=== PATIENT | female | born 1980 | race Caucasian/White ===

== ENCOUNTER 2022-09-03 11:47 | Emergency (ER) | payer OTHER, SELFPAY ==
[2022-09-03] VITALS (22 sets, daily range): BP systolic 100–129; BP diastolic 51–75; PULSE 53–70; RESP 18; TEMP 35.8; O2SAT 95–98; BMI 35.8
--- NOTE | 2022-09-03 12:45 | ED.GENADULT ---
HPI - General Adult General Chief complaint: Flank Pain Stated complaint: Full body swelling, flank pain Time Seen by Provider: 09/03/22 11:55 Source: patient Mode of arrival: ambulatory Limitations: no limitations History of Present Illness HPI narrative: 41-year-old female coming in today complaining of generalized swelling going on since July. She states that she has had increased swelling over the last several months and that the swelling encompasses the entire body from head to toe. She states that everything feels tight. She states that all of her joints hurt. She states that she also has abdominal pain and left-sided flank pain. She complains of drainage coming from her umbilicus. She also has history of depression and states that she has ongoing suicidal thoughts. These thoughts are not new. She was seeing a therapist but she is not quite sure what happened, she does not see that therapist anymore. Patient does have a history of depression, anxiety, chronic pain, irritable bowel syndrome. Patient denies any tobacco use, does vape marijuana daily. Related Data Home Medications Medication Instructions Recorded Confirmed colestipol 5 gram oral granules 5 g PO QDAY 05/05/22 08/04/22 (Colestid) Medical Cannibis PO 05/31/22 08/04/22 mupirocin 2 % topical ointment 1 applic topical TID PRN 08/04/22 08/04/22 Previous Rx's Medication Instructions Recorded betamethasone dipropionate 0.05 % 1 applic topical BID PRN itching 04/11/22 topical cream #45 grams pregabalin 150 mg capsule 150 mg PO TID #90 caps 07/27/22 lorazepam 1 mg tablet 1 mg PO BID PRN anxiety #60 tabs 08/04/22 lurasidone 20 mg tablet (Latuda) 20 mg PO QAM #30 tabs 08/04/22 meloxicam 15 mg tablet 15 mg PO QDAY #90 tabs 08/12/22 paroxetine HCl 20 mg tablet 20 mg PO QDAY #90 tabs 08/12/22 Allergies Allergy/AdvReac Type Severity Reaction Status Date / Time No Known Drug Allergies Allergy Verified 09/03/22 12:05 Review of Systems Status of ROS: Reports: 10 or more systems reviewed and unremarkable except as noted in History and below [facility] Medical History Anxiety Chronic pelvic pain in female History of anemia History of chlamydia infection History of dumping syndrome History of migraine History of spontaneous Irritable bowel syndrome Major depression Plantar fasciitis Post-hysterectomy menopause Psoriasis Suicidal ideation (08/2018) Umbilical hernia Surgical History History of 3 sections History of appendectomy History of bilateral salpingectomy History of laparoscopic cholecystectomy History of laparoscopy History of tonsillectomy and adenoidectomy History of total abdominal hysterectomy (2007) Family History Aunt Breast cancer Father Stomach cancer Depression Diabetes High blood pressure Stroke Mother Depression High blood pressure Maternal Grandfather Coronary artery disease Diabetes High blood pressure Depression Social History Narrative: - 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 depression and ptsd. Little interest or pleasure in doing things: more than half the days Feeling down, depressed, or hopeless: several days service: No Exam Narrative: Exam Narrative: Overweight, well-developed patient in no acute distress. Alert and oriented. Answers questions appropriately. Mood and affect are appropriate. Patient speaks in full sentences without needing to catch her breath. Speech is not slurred or pressured. HEENT: Normocephalic atraumatic. Pupils are equally round reactive to light. Extraocular muscles are intact. Conjunctivae are moist without any icterus noted. Moist mucous membranes. Posterior pharynx is normal. Neck is soft without any lymphadenopathy or thyromegaly. No masses are appreciated. She does have poor dentition. Cardiovascular: Heart is regular rate and rhythm S1 and S2 are present without any murmurs. Lungs: Clear to auscultation bilaterally no wheezes rhonchi or rales are appreciated. Patient takes deep breaths without any discomfort. Abdomen: Soft and nontender nondistended with normal bowel sounds. No guarding or rebound. No masses or organomegaly appreciated. No CVA tenderness. She has some mild skin irritation at the 6:00 o'clock location of her belly button, no evidence of infection or drainage is noted. Extremities: Bilateral lower extremities are without edema. Normal DP and PT pulses. Skin: Well perfused without any obvious rashes. I do not see any evidence of edema anywhere on her body. Certainly no pitting edema is noted. Her fingers do not appear tight, skin of the extremities is not shiny. She has redundant skin around the abdomen and back, no evidence of swelling. Const: Vital Signs, click to edit/add: Vital Signs - 24 hr 09/03/22 12:05 09/03/22 13:05 09/03/22 13:06 Temperature 96.4 F L Pulse Rate 66 70 Pulse Rate [Femora l] 70 Respiratory Rate 18 Blood Pressure 100/65 Blood Pressure [Ri ght Upper Arm] 129/75 Pulse Oximetry 97 96 95 Oxygen Delivery Me thod Room Air 09/03/22 13:30 09/03/22 13:31 09/03/22 13:32 Temperature Pulse Rate 56 L 58 L Pulse Rate [Femora l] Respiratory Rate Blood Pressure 111/60 Blood Pressure [Ri ght Upper Arm] Pulse Oximetry 97 97 98 Oxygen Delivery Me thod 09/03/22 13:45 09/03/22 14:00 09/03/22 14:02 Temperature Pulse Rate 57 L 53 L 54 L Pulse Rate [Femora l] Respiratory Rate Blood Pressure 104/62 Blood Pressure [Ri ght Upper Arm] Pulse Oximetry 95 97 96 Oxygen Delivery Me thod 09/03/22 14:21 09/03/22 14:30 09/03/22 14:32 Temperature Pulse Rate 67 55 L 64 Pulse Rate [Femora l] Respiratory Rate Blood Pressure 110/55 L Blood Pressure [Ri ght Upper Arm] Pulse Oximetry 97 97 Oxygen Delivery Me thod 09/03/22 14:45 09/03/22 15:00 09/03/22 15:03 Temperature Pulse Rate 56 L 59 L 57 L Pulse Rate [Femora l] Respiratory Rate Blood Pressure 100/52 L Blood Pressure [Ri ght Upper Arm] Pulse Oximetry 96 95 96 Oxygen Delivery Me thod Course Course Hospital Course: I discussed with the patient that in the emergency room it is difficult for us to solve problems that have been going on for many months. We did discuss checking labs such as protein levels and electrolytes to make sure that everything was normal today which the patient was in agreement to. Labs were all unremarkable, Lyme screening test however was positive. This was checked given that her symptoms started this fall. We also did go ahead and order a DEC assessment. Unfortunately, it was a several hour wait and the patient did not wish to wait that long. We discussed further her thoughts of suicide and she states that nothing is new, she does not really wish to harm herself, she has no plan and she feels perfectly safe going home. She is here with her who corroborates her story. She states that she has access to outpatient therapy and that she will call and set up an appointment. Vital Signs Vital signs: Initial Vital Signs Temperature 96.4 F L 09/03/22 12:05 Temperature Source Temporal Artery Scan 09/03/22 12:05 Pulse Rate 70 09/03/22 12:05 Pulse Rhythm 09/03/22 12:05 Respiratory Rate 18 09/03/22 12:05 Blood Pressure 129/75 09/03/22 12:05 Blood Pressure Mean 93 09/03/22 12:05 Blood Pressure Position Supine 09/03/22 12:05 Pulse Oximetry 97 09/03/22 12:05 Oxygen Delivery Method 09/03/22 12:05 Vital Signs Temperature 96.4 F L 09/03/22 12:05 Pulse Rate 70 09/03/22 12:05 Respiratory Rate 18 09/03/22 12:05 Blood Pressure 129/75 09/03/22 12:05 Pulse Oximetry 97 09/03/22 12:05 Oxygen Delivery Method 09/03/22 12:05 Temperature 96.4 F L 09/03/22 12:05 Pulse Rate 57 L 09/03/22 15:03 Respiratory Rate 18 09/03/22 12:05 Blood Pressure 100/52 L 09/03/22 15:03 Pulse Oximetry 96 09/03/22 15:03 Oxygen Delivery Method 09/03/22 12:05 Medical Decision Making MDM Narrative Medical decision making narrative: 41-year-old female with nonspecific aches, abdominal and flank pain, joint aches, and subjective swelling. Workup today was unremarkable. Lyme Western blot pending. Patient encouraged to follow-up with her primary care provider. Depression and anxiety-patient will reach out to outpatient therapy for follow-up. Medical Records Medical records reviewed: Yes I reviewed the patient's medical records Lab Data Lab results reviewed: Yes I reviewed the patient's lab results Labs: Lab Results 09/03/22 09/03/22 09/03/22 Range/Units 12:45 12:45 12:45 WBC 4.67 (4.50-11.00) K/uL RBC 4.48 (4.00-5.20) m/uL Hgb 13.4 (12.0-16.0) gm/dL Hct 39.5 (33.0-51.0) % MCV 88 (80-100) fL MCH 30 (26-34) pg MCHC 34 (32-36) gm/dL RDW Coeff of Ismael 13.0 (11.5-15.5) % Plt Count 260 (140-440) K/uL Neut % (Auto) 59.3 (42.0-72.0) % Lymph % (Auto) 32.1 (20-44) % [place] % (Auto) 5.6 (0.0-11.0) % Eos % (Auto) 2.4 (0.0-7.0) % Baso % (Auto) 0.6 (0.0-3.0) % Neut # (Auto) 2.77 (1.7-7.0) K/uL Lymph # (Auto) 1.50 (0.90-2.90) K/uL [place] # (Auto) 0.30 (0.00-0.90) K/UL Eos # (Auto) 0.11 (0.00-0.50) K/uL Baso # (Auto) 0.03 (0.00-0.30) K/uL Abs Immat Gran (auto) 0.00 (0.00-0.30) K/uL Imm/Tot Granulo (auto) 0.0 % ESR 5 (2-20) mm/hr Sodium 142 (135-149) mmol/L Potassium 4.1 (3.6-5.1) mmol/L Chloride 108 (96-114) mmol/L Carbon Dioxide 30 (20-32) mmol/L BUN 9 (5-24) mg/dL Creatinine 0.6 (0.5-1.5) mg/dL Estimated Creat Clear 98.58 Estimated GFR 116 ml/min Glucose 84 (60-115) mg/dL Lactate (0.5-1.9) mmol/L Calcium 8.8 (8.4-10.6) mg/dL Total Bilirubin 0.8 (0.1-1.5) mg/dL Direct Bilirubin 0.2 (0.0-0.5) mg/dL AST 28 (12-35) U/L ALT 27 (4-35) U/L Alkaline Phosphatase 56 (40-150) U/L C-Reactive Protein < 0.5 L (0.5-1.0) mg/dL Total Protein 7.1 (6.0-8.3) g/dL Albumin 4.4 (3.3-5.0) g/dL Lipase 55 (23-300) U/L TSH (0.270-4.20) uIU/mL HCG, Qual (Negative) Urine Color (Yellow) Urine Appearance (Clear) Urine pH (5.0-8.5) Ur Specific [place] (1.000-1.030) Urine Protein (Negative) Urine Glucose (UA) (Negative) Urine Ketones (Negative) Urine Blood (Negative) Urine Nitrite (Negative) Urine Bilirubin (Negative) Urine Urobilinogen (0.2-1.0) Ur Leukocyte Esterase (Negative) Urine RBC (0-2) Urine WBC (0-5) Ur Squamous Epith Cells (None-Few) Urine Bacteria (None) Lyme Disease Screen (Negative) 09/03/22 09/03/22 09/03/22 Range/Units 12:45 12:45 12:45 WBC (4.50-11.00) K/uL RBC (4.00-5.20) m/uL Hgb (12.0-16.0) gm/dL Hct (33.0-51.0) % MCV (80-100) fL MCH (26-34) pg MCHC (32-36) gm/dL RDW Coeff of Ismael (11.5-15.5) % Plt Count (140-440) K/uL Neut % (Auto) (42.0-72.0) % Lymph % (Auto) (20-44) % [place] % (Auto) (0.0-11.0) % Eos % (Auto) (0.0-7.0) % Baso % (Auto) (0.0-3.0) % Neut # (Auto) (1.7-7.0) K/uL Lymph # (Auto) (0.90-2.90) K/uL [place] # (Auto) (0.00-0.90) K/UL Eos # (Auto) (0.00-0.50) K/uL Baso # (Auto) (0.00-0.30) K/uL Abs Immat Gran (auto) (0.00-0.30) K/uL Imm/Tot Granulo (auto) % ESR (2-20) mm/hr Sodium (135-149) mmol/L Potassium (3.6-5.1) mmol/L Chloride (96-114) mmol/L Carbon Dioxide (20-32) mmol/L BUN (5-24) mg/dL Creatinine (0.5-1.5) mg/dL Estimated Creat Clear Estimated GFR ml/min Glucose (60-115) mg/dL Lactate 0.9 (0.5-1.9) mmol/L Calcium (8.4-10.6) mg/dL Total Bilirubin (0.1-1.5) mg/dL Direct Bilirubin (0.0-0.5) mg/dL AST (12-35) U/L ALT (4-35) U/L Alkaline Phosphatase (40-150) U/L C-Reactive Protein (0.5-1.0) mg/dL Total Protein (6.0-8.3) g/dL Albumin (3.3-5.0) g/dL Lipase (23-300) U/L TSH 1.060 (0.270-4.20) uIU/mL HCG, Qual (Negative) Urine Color (Yellow) Urine Appearance (Clear) Urine pH (5.0-8.5) Ur Specific [place] (1.000-1.030) Urine Protein (Negative) Urine Glucose (UA) (Negative) Urine Ketones (Negative) Urine Blood (Negative) Urine Nitrite (Negative) Urine Bilirubin (Negative) Urine Urobilinogen (0.2-1.0) Ur Leukocyte Esterase (Negative) Urine RBC (0-2) Urine WBC (0-5) Ur Squamous Epith Cells (None-Few) Urine Bacteria (None) Lyme Disease Screen IgM Presumptive POS (Negative) 09/03/22 09/03/22 Range/Units 14:20 14:20 WBC (4.50-11.00) K/uL RBC (4.00-5.20) m/uL Hgb (12.0-16.0) gm/dL Hct (33.0-51.0) % MCV (80-100) fL MCH (26-34) pg MCHC (32-36) gm/dL RDW Coeff of Ismael (11.5-15.5) % Plt Count (140-440) K/uL Neut % (Auto) (42.0-72.0) % Lymph % (Auto) (20-44) % [place] % (Auto) (0.0-11.0) % Eos % (Auto) (0.0-7.0) % Baso % (Auto) (0.0-3.0) % Neut # (Auto) (1.7-7.0) K/uL Lymph # (Auto) (0.90-2.90) K/uL [place] # (Auto) (0.00-0.90) K/UL Eos # (Auto) (0.00-0.50) K/uL Baso # (Auto) (0.00-0.30) K/uL Abs Immat Gran (auto) (0.00-0.30) K/uL Imm/Tot Granulo (auto) % ESR (2-20) mm/hr Sodium (135-149) mmol/L Potassium (3.6-5.1) mmol/L Chloride (96-114) mmol/L Carbon Dioxide (20-32) mmol/L BUN (5-24) mg/dL Creatinine (0.5-1.5) mg/dL Estimated Creat Clear Estimated GFR ml/min Glucose (60-115) mg/dL Lactate (0.5-1.9) mmol/L Calcium (8.4-10.6) mg/dL Total Bilirubin (0.1-1.5) mg/dL Direct Bilirubin (0.0-0.5) mg/dL AST (12-35) U/L ALT (4-35) U/L Alkaline Phosphatase (40-150) U/L C-Reactive Protein (0.5-1.0) mg/dL Total Protein (6.0-8.3) g/dL Albumin (3.3-5.0) g/dL Lipase (23-300) U/L TSH (0.270-4.20) uIU/mL HCG, Qual Negative (Negative) Urine Color Yellow (Yellow) Urine Appearance Clear (Clear) Urine pH 7.0 (5.0-8.5) Ur Specific [place] 1.025 (1.000-1.030) Urine Protein Negative (Negative) Urine Glucose (UA) Negative (Negative) Urine Ketones Negative (Negative) Urine Blood Negative (Negative) Urine Nitrite Negative (Negative) Urine Bilirubin Negative (Negative) Urine Urobilinogen 1.0 (0.2-1.0) Ur Leukocyte Esterase Negative (Negative) Urine RBC 0-2 (0-2) Urine WBC 0-2 (0-5) Ur Squamous Epith Cells None (None-Few) Urine Bacteria None (None) Lyme Disease Screen (Negative) Discharge Plan Discharge Clinical Impression: Swelling Patient Disposition: Home, Self-Care Condition: Stable Additional Instructions: Recommend you follow-up with your primary care provider this coming week. Also recommend you start therapy again. Should your Lyme test come back positive you will be contacted in the next 2 or 3 days. Prescriptions: No Action Medical Cannibis PO Latuda 20 mg tablet 20 mg PO QAM Qty: 30 1RF Rx Instructions: must administer with food (at least 350 calories) lorazepam 1 mg tablet 1 mg PO BID PRN (Reason: anxiety) Qty: 60 0RF betamethasone dipropionate 0.05 % cream 1 applic topical BID PRN (Reason: itching) Qty: 45 1RF colestipol [Colestid] 5 gram granules 5 g PO QDAY pregabalin 150 mg capsule 150 mg PO TID Qty: 90 1RF mupirocin 2 % ointment 1 applic topical TID PRN meloxicam 15 mg tablet 15 mg PO QDAY Qty: 90 3RF paroxetine HCl 20 mg tablet 20 mg PO QDAY Qty: 90 1RF Rx Instructions: Take at bedtime Follow Up/Referrals: Jovon Aguiar MD [Primary Care Provider] - Stand Alone Forms: [facility] Info Instructions
--- OUTSIDE RECORDS SUMMARY | 2022-09-03 12:55 | XMS_ITS | Clinical Summary ---
:1980 Author Organization [employer] [facility] [place] [address] Care Team Providers Name Role Phone Jovon Aguiar MD Primary Care Provider [phone] Allergies No known active allergies Medications Medication Sig Dispensed Refills Start Date End Date Status colestipol (COLESTID) Take 1 tablet by 30 tablet 0 04/20/2011 Active 1 gram tablet mouth once daily. celecoxib (CELEBREX) Take 200 mg by 0 10/13/2020 Active 200 mg capsule mouth. LORazepam (ATIVAN) 1 Take 1 mg by mouth 0 03/02/2021 Active mg tablet at bedtime if needed. Colestipol HCl Take 1 g by mouth 1 Bottle 0 03/25/2021 Active (Colestid) 5 gram once daily. granIndications: Chronic diarrhea FLUoxetine (PROZAC) 10 TAKE 1 CAPSULE BY 0 1 Active mg capsule MOUTH ONCE DAILY IN THE MORNING TAKE WITH 20MG FOR A TOTAL DAILY DOSE OF 30MG FLUoxetine (PROZAC) 20 0 09/12/2021 Active mg capsule Active Problems Problem Noted Date Acute gastric ulcer 02/25/2015 Overview: EGD 01/2015 prepyloric gastric ulcers, re commend omeprazole 20 mg per day for 3 months Immunizations Name Administration Dates Next Due Tdap 01/20/2010 Social History Tobacco Use Types Packs/Day Years Used Date Never Smoker Smokeless Tobacco: Never Used Tobacco Cessation: Counseling Given: Yes Alcohol Use Standard Drinks/Week Comments Yes 0 (1 standard drink = 0.6 oz pure alcoho l) once in a while Alcohol Habits Answer Date Recorded How often do you have a drink containing alcohol? Not asked How many drinks containing alcohol do you have on a Not aske d typical day when you are drinking? How often do you have six or more drinks on one Not asked occasion? Comment: once in a while 02/05/2015 Sex Assigned at Date Recorded Not on file Obstetrics History Last Filed Vital Signs Vital Sign Reading Time Taken Comments Blood Pressure 123/63 10/04/2021 4:54 PM SITE SURVEYOR Pulse 66 10/04/2021 4:54 PM SITE SURVEYOR Temperature 37.6 ??C (99.6 ??F) 10/04/2021 4:54 PM SITE SURVEYOR Respiratory Rate 18 10/04/2021 4:54 PM SITE SURVEYOR Oxygen Saturation 98% 10/04/2021 4:54 PM SITE SURVEYOR Inhaled Oxygen Concentration - - Weight 82.1 kg (181 lb) 10/04/2021 4:54 PM SITE SURVEYOR Height 157.5 cm (5' 2) 09/22/2021 4:39 PM SITE SURVEYOR Body Mass Index 33.11 09/22/2021 4:39 PM SITE SURVEYOR Plan of Treatment Health Maintenance Due Date Last Done Comments COVID-19 vaccine series (#1) 06/27/1982 Depression screening for age 12+ 1993 HIV for age 15-65 1996 Hepatitis C screening for age 18-79 12/26/1999 Pap test for age 21-65 2002 BMI (ht and wt on same day) for age 18+ 02/17/2017 02/18/20 16 Tetanus booster 01/21/2020 01/20/2010 Influenza for age 9-49 06/02/2022 Tdap Completed 01/20/2010 Results Not on filefrom Last 3 Months Insurance Payer Benefit Plan / Subscriber ID Effective Dates Phone Addre ss Type Group [facility] [id number] 2020-Present [address] [address] [place] [address] Care Teams Alpine Patroller Relationship Specialty Start Date End Date Jovon Aguiar MD PCP - General Family Practice 10/04/211999 [place] [address]
[2022-09-03 12:59] LABS: Lactate* 0.9 mmol/L (0.5-1.9)
[2022-09-03 13:02] LABS: Basophils Absolute Auto 0.03 K/uL (0.00-0.30); Basophils Percent Auto 0.6 % (0.0-3.0); Eosinophils Absolute Auto 0.11 K/uL (0.00-0.50); Eosinophils Percent Auto 2.4 % (0.0-7.0); Hematocrit 39.5 % (33.0-51.0); Hemoglobin* 13.4 gm/dL (12.0-16.0); Lymphocytes Percent Auto 32.1 % (20-44); Mean Corpuscular HGB Conc 34 gm/dL (32-36); Mean Corpuscular Hemoglobin 30 pg (26-34); Mean Corpuscular Volume 88 fL (80-100); Monocytes Percent Auto 5.6 % (0.0-11.0); Neutrophils Absolute Auto 2.77 K/uL (1.7-7.0); Neutrophils Percent Auto 59.3 % (42.0-72.0); Platelet Count* 260 K/uL (140-440); Red Blood Count 4.48 m/uL (4.00-5.20); White Blood Count* 4.67 K/uL (4.50-11.00)
[2022-09-03 13:09] LABS: Slide Review Reflex No
[2022-09-03 13:15] LABS: Albumin* 4.4 g/dL (3.3-5.0); Chloride* 108 mmol/L (96-114); Sodium* 142 mmol/L (135-149)
[2022-09-03 13:16] LABS: Potassium* 4.1 mmol/L (3.6-5.1)
[2022-09-03 13:18] LABS: Aspartate Amino Transferase* 28 U/L (12-35); Bilirubin Direct* 0.2 mg/dL (0.0-0.5); Bilirubin Total* 0.8 mg/dL (0.1-1.5); Carbon Dioxide* 30 mmol/L (20-32); Creatinine* 0.6 mg/dL (0.5-1.5); Est. Creatinine Clearance* 98.58; Estimated Glomerular Filt Rate 116 ml/min; Total Protein* 7.1 g/dL (6.0-8.3)
[2022-09-03 13:19] LABS: Alanine Aminotransferase* 27 U/L (4-35); Alkaline Phosphatase* 56 U/L (40-150); Blood Urea Nitrogen* 9 mg/dL (5-24); Calcium* 8.8 mg/dL (8.4-10.6); Glucose* 84 mg/dL (60-115); Lipase* 55 U/L (23-300)
[2022-09-03 13:45] LABS: Erythrocyte SedimentationRate* 5 mm/hr (2-20)
[2022-09-03 13:54] LABS: C Reactive Protein* < 0.5 mg/dL (0.5-1.0)
--- NOTE | 2022-09-03 14:06 | ED.NURSE ---
Unable to obtain UA at this time. Pt brought apple juice, approved by .
[2022-09-03 14:25] LABS: Appearance Urine Clear (Clear); Bilirubin Urine Negative (Negative); Blood Urine Negative (Negative); Color Urine Yellow (Yellow); Glucose Urine Negative (Negative); Ketones Urine Negative (Negative); Leukocyte Esterase Urine Negative (Negative); Nitrite Urine Negative (Negative); Protein Urine Negative (Negative); Specific Gravity Urine 1.025 (1.000-1.030)
[2022-09-03 14:26] LABS: HCG Qualitative* Negative (Negative)
[2022-09-03 14:48] LABS: RBC Urine 0-2 (0-2); WBC Urine 0-2 (0-5)
== END 2022-09-03 16:15 | disposition home or self-care (01) ==
PROVIDERS: Emergency Provider Family Medicine; PCP Family Medicine
DX: M62.81 Muscle weakness (generalized) (principal); M25.50 Pain in unspecified joint
CPT/HCPCS: 36415; 80048; 80076; 81001; 83605; 83690; 84443; 84703; 85025; 85651; 86140; 86617; 86618; 99283; 99284

== ENCOUNTER 2023-06-27 16:33 | Outpatient (CLI) | payer OTHER, SELFPAY ==
--- OUTSIDE RECORDS SUMMARY | 2023-06-27 16:36 | XMS_ITS | Continuity of Care Document ---
Author Name Unknown Organization [facility] Address [address] [place] [id number] Phone Care Team Providers Care Manager Intensive Care Name Role Phone Will MD VIEYRA, Hector Payan Unavailabl e Advance Directives Directive Yes / No Effective Date File Name No Information Encounters Encounter Description Practice Location Reason(s) For Visit Diagnoses Date Provider Providers Copied on Encounter [facility], [address] [place] [address], [id number], [place] tel:[phone] [facility] No Information Will Hector. [address] [facility] [place], [place], [id number], [place]. tel:[phone] Family History Family Member Type Diagnosis Age At Onset No Information Payers Payer name Insurance type Covered constitution party ID Authoriza tion(s) No Information Social History Type Description Quantity Date Captured Comments Sex Female Smoking Status No Information Chief Complaint And Reason For Visit No Information Reason For Referral Reason For Referral No Information History Of Present Illness Encounter Date Complaint History Of Prese nt Illness No Information Functional Status Date Functional Assessmen t No Information Instructions Date Instruction Additional Infor mation No Information Assessments Type Assessment Date No Information Patient Care Teams Name Effective Dates (start - stop) Status Members No Information
--- NOTE | 2023-06-27 16:45 | CRLHL7_ITS ---
For Patients: As a result of the Century Cures Act, medical imaging exams and procedure reports are released immediately into your electronic medical record. You may view this report before your referring provider. If you have questions, please contact your health care provider. BILATERAL SCREENING MAMMOGRAM WITH COMPUTER-AIDED DETECTION AND TOMOSYNTHESIS TECHNIQUE: CC and MLO views were obtained. These mammographic images have been obtained using full-field digital technique. These mammographic images were interpreted with the benefit of computer-aided detection. Breast Tomosynthesis was used in this interpretation. COMPARISON FILM: None, baseline. FINDINGS: There are scattered areas of fibroglandular density IMPRESSION: There is no radiographic evidence for malignancy. ASSESSMENT: BI-RADS Category 1: Negative RECOMMENDATION: Routine screening mammogram in 1 year. A lay language report of this examination will be provided to the patient. Jovon Atwood M.D. Diagnostic Radiologist [email or web address] EDDIE/Dictated by: Jovon Atwood MD @ 06/28/2023 10:45:00 AM (Electronically Signed)
== END 2023-06-27 16:34 | disposition home or self-care (01) ==
LOC: MAMMO 16:34
PROVIDERS: PCP Family Medicine; Visit Provider Family Medicine
DX: Z12.31 Encounter for screening mammogram for malignant neoplasm of breast (principal)
CPT/HCPCS: 77063; 77067

== ENCOUNTER 2024-02-13 08:36 | Outpatient (CLI) | payer OTHER, SELFPAY ==
--- OUTSIDE RECORDS SUMMARY | 2024-02-13 08:41 | XMS_ITS | Clinical Summary ---
Author Name Unknown Organization [employer] [facility] Address [place], [place] [address] Care Team Providers Care Development Geologist Name Role Phone Jovon Aguiar MD Primary Care Provider + Allergies No known active allergies Medications Medication Sig Dispensed Refills Start Date End Date Status colestipol (COLESTID) 1 gram tablet Take 1 tablet by mouth once daily. 30 tablet 0 04/20/2011 Active celecoxib (CELEBREX) 200 mg capsule Take 200 mg by mouth. 10/13/2020 Active LORazepam (ATIVAN) 1 mg tablet Take 1 mg by mouth at bedtime if needed. 03/02/2021 Active Colestipol HCl (Colestid) 5 gram granIndications:Chron ic diarrhea Take 1 g by mouth once daily. 1 Bottle 03/25/2021 Active FLUoxetine (PROZAC) 10 mg capsule TAKE 1 CAPSULE BY MOUTH ONCE DAILY IN THE MORNING TAKE WITH 20MG FOR A TOTAL DAILY DOSE OF 30MG 09/20/2021 Active FLUoxetine (PROZAC) 20 mg capsule 09/12/2021 Active Active Problems Problem Noted Date Diagnosed Date Acute gastric ulcer 02/25/2015 Overview: EGD 01/2015 prepyloric gastric ulcers, recommend omeprazole 20 mg per day for 3 months Immunizations Name Administration Dates Next Due Tdap 01/20/2010 Social History Tobacco Use Types Packs/Day Years Used Date Smoking Tobacco: Never Smokeless Tobacco: Never Tobacco Cessation:Counseling Given: Yes Alcohol Use Standard Drinks/Week Comments Yes 0 (1 standard drink = 0.6 oz pur e alcohol) once in a while Sex and Gender Information Value Date Recorded Sex Assigned at Not on file Gender Identity Not on file Sexual Orientation Not on file Obstetrics History Last Filed Vital Signs Vital Sign Reading Time Taken Comments Blood Pressure 123/63 10/04/2021 4:54 PM AUTOMATION ENGINEERING TECHNICIAN Pulse 66 10/04/2021 4:54 PM AUTOMATION ENGINEERING TECHNICIAN Temperature 37.6 ??C (99.6 ??F) 10/04/2021 4:54 PM CS T Respiratory Rate 18 10/04/2021 4:54 PM AUTOMATION ENGINEERING TECHNICIAN Oxygen Saturation 98% 10/04/2021 4:54 PM AUTOMATION ENGINEERING TECHNICIAN Inhaled Oxygen Concentration - - Weight 82.1 kg (181 lb) 10/04/2021 4:54 PM AUTOMATION ENGINEERING TECHNICIAN Height 157.5 cm (5' 2) 09/22/2021 4:39 PM AUTOMATION ENGINEERING TECHNICIAN Body Mass Index 33.11 09/22/2021 4:39 PM AUTOMATION ENGINEERING TECHNICIAN Plan of Treatment Health Maintenance Due Date Last Done Comments Depression screening for age 12+ 1993 HIV for age 15-65 1996 Hepatitis C screening for ag e 18-79 12/26/1999 Pap test for age 21-65 2002 BMI (ht and wt on same day) for age 18+ 02/17/2017 02/18/2016 Tetanus booster 01/21/2020 01/20/2010 COVID-19 vaccine series ( season) 2023 Influenza for age 9-49 06/02/2024 Tdap Completed 01/20/2010 Pneumococcal series for age 6-64 Aged Out No longer eligible based on patient's age to complete this topic Care Teams Development Geologist Relationship Specialty Start Date End Date Jovon Aguiar MD [address] [place] [address] PCP - General Family Practice 10/04/21
--- OUTSIDE RECORDS SUMMARY | 2024-02-13 08:41 | XMS_ITS | Continuity of Care Document ---
Author Name Unknown Organization [facility] Cli stacie Address [address] [place] [id number] Phone Care Team Providers Care Computer Terminal Operator Name Role Phone Will MD VIEYRA, Hector Payan Unavailabl e Advance Directives Directive Yes / No Effective Date File Name No Information Encounters Encounter Description Practice Location Reason(s) For Visit Diagnoses Date Provider Providers Copied on Encounter [facility], [address] [place] [address], [id number], [place] tel:[phone] [facility] No Information Will Hector. [address] [facility] [place], [place], [id number], [place]. tel:[phone] Family History Family Member Type Diagnosis Age At Onset No Information Payers Payer name Insurance type Covered republican ID Authoriza tion(s) No Information Social History [...]
== END 2024-02-13 08:37 | disposition home or self-care (01) ==
PROVIDERS: PCP Family Medicine; Visit Provider Family Medicine
DX: R21 Rash and other nonspecific skin eruption (principal)
CPT/HCPCS: 80048; 83036; 83516; 85025; 85651; 86039; 86431

== ENCOUNTER 2025-08-04 16:09 | Outpatient (CLI) | payer BC, OTHER, SELFPAY | END 2025-08-04 16:10 | disposition home or self-care (01) | PROVIDERS: PCP Family Medicine; Visit Provider Family Medicine | DX: L40.9 Psoriasis, unspecified (principal); Z13.6 Encounter for screening for cardiovascular disorders | CPT/HCPCS: 80048; 80061; 84460; 85025 ==